=== PATIENT | female | born 1980 | race African-American/Black ===

== ENCOUNTER 2017-10-03 13:22 | Inpatient (IN) | payer OTHER ==
[~2017-10-03] VITALS: Ht 170.2 cm; Wt 100.0 kg
[2017-10-03] MEDS ORDERED: NICOTINE1 EAC1 TD (21:13)
== END 2017-10-05 13:30 | disposition home or self-care (01) | DRG 775 ==
LOC: FBC 13:22
PROVIDERS: ADMIT Obstetrics & Gynecology
PROC: 10907ZC Drainage of Amniotic Fluid, Therapeutic from Products of Conception, Via Natural or Artificial Opening (ICD-10-PCS; 2017-10-03)
PROC: 00HU33Z Insertion of Infusion Device into Spinal Canal, Percutaneous Approach (ICD-10-PCS; 2017-10-03)
PROC: 3E0R3BZ Introduction of Anesthetic Agent into Spinal Canal, Percutaneous Approach (ICD-10-PCS; 2017-10-03)
PROC: 10E0XZZ Delivery of Products of Conception, External Approach (ICD-10-PCS; principal; 2017-10-04)
DX: O66.0 Obstructed labor due to shoulder dystocia (principal); O99.324 Drug use complicating childbirth; O71.7 Obstetric hematoma of pelvis; F15.11 Other stimulant abuse, in remission; O99.344 Other mental disorders complicating childbirth; F20.9 Schizophrenia, unspecified; F14.11 Cocaine abuse, in remission; F12.11 Cannabis abuse, in remission; O69.81X0 Labor and delivery complicated by cord around neck, without compression, not applicable or unspecified; Z86.19 Personal history of other infectious and parasitic diseases; Z88.5 Allergy status to narcotic agent; Z91.041 Radiographic dye allergy status; Z87.891 Personal history of nicotine dependence; Z91.410 Personal history of adult physical and sexual abuse; Z3A.40 40 weeks gestation of pregnancy; Z37.0 Single live birth
CPT/HCPCS: 01960; 82803; 85027; J2590; J7120

== ENCOUNTER 2017-10-15 06:43 | Emergency (ER) | payer OTHER ==
[~2017-10-15] VITALS: Ht 170.2 cm; Wt 90.7 kg
[~2017-10-15 06:43] MED LIST: NICOTINE1 EAC1 TD
--- NOTE | 2017-10-15 07:13 | EKG ---
[facility] [address] [facility] [place] [address] Signed Supraventricular tachycardia Rightward axis Incomplete right bundle branch block Septal infarct (cited on or before 15-OCT-2017) Abnormal ECG When compared with ECG of 15-OCT-2017 06:48, (Unconfirmed) ST now depressed in Lateral leads Nonspecific T wave abnormality, improved in Inferior leads Nonspecific T wave abnormality no longer evident in Lateral leads Confirmed by FERMIN BRANDON MD ([id number]) on 10/15/2017 7:13:20 AM Electronically Signed By: FERMIN BRANDON MD 10/15/17 0713 PATIENT NAME: NATHANAEL MOLINA Electrocardiogram DATE OF : 78 PHYSICIAN: FERMIN BRANDON MD REPORT #: [id number] REPORT IS CONFIDENTIAL AND NOT TO BE RELEASED WITHOUT AUTHORIZATION
--- NOTE | 2017-10-16 16:04 | EKG ---
[facility] [address] [facility] [place] [address] Signed Normal sinus rhythm Possible Left atrial enlargement Incomplete right bundle branch block Borderline ECG When compared with ECG of 15-OCT-2017 06:49, Vent. rate has decreased BY 114 BPM QRS axis shifted left Criteria for Septal infarct are no longer present ST no longer depressed in Inferior leads ST elevation has replaced ST depression in Anterolateral leads Confirmed by JORGE JOEL DO ([id number]) on 10/16/2017 4:03:55 PM Electronically Signed By: JORGE JOEL DO 10/16/17 1604 PATIENT NAME: NATHANAEL MOLINA Electrocardiogram DATE OF : [birth year] PHYSICIAN: JORGE JOEL DO REPORT #: [id number] REPORT IS CONFIDENTIAL AND NOT TO BE RELEASED WITHOUT AUTHORIZATION
== END 2017-10-15 08:47 | disposition home or self-care (01) ==
LOC: ED 06:43
DX: I47.1 Supraventricular tachycardia (principal); Z87.891 Personal history of nicotine dependence; Z88.5 Allergy status to narcotic agent; Z88.8 Allergy status to other drugs, medicaments and biological substances; Z79.899 Other long term (current) drug therapy
CPT/HCPCS: 71045; 80053; 84484; 85025; 93005; 93010; 99285

== ENCOUNTER 2019-03-13 13:27 | Emergency (ER) | payer OTHER ==
[~2019-03-13] VITALS: Ht 170.2 cm; Wt 90.7 kg
== END 2019-03-13 15:00 | disposition home or self-care (01) ==
LOC: ED 13:27
DX: R25.8 Other abnormal involuntary movements (principal); Z87.891 Personal history of nicotine dependence; Z88.5 Allergy status to narcotic agent; Z88.8 Allergy status to other drugs, medicaments and biological substances
CPT/HCPCS: 99283; Q0163

== ENCOUNTER 2022-02-10 05:40 | Day surgery (SDC) | payer OTHER ==
[~2022-02-10] VITALS: Ht 170.2 cm; Wt 100.0 kg
[~2022-02-10 05:40] MED LIST changes: +FISH OIL + D31 EACH PO; +MULTI VITAMIN1 EACH PO; +RISPERDAL1 MG PO; +UNISOM50 MG PO
--- NOTE | 2022-02-10 06:49 | NUR ---
0645-PATIENT UP TO RESTROOM.
--- NOTE | 2022-02-10 10:36 | NUR ---
02/10/22 1036 Eliza Guerrero 1023- PT ARRIVES TO PACU REACTIVE TO STIMULI. PT DOES NOT ANSWER QUESTIONS OR FOLLOW COMMANDS AT THIS TIME. PT FALLS INSTANTLY BACK TO SLEEP. RESP EVEN AND UNLABORED. OXYGEN SAT HIGH 90'S TO 100% ON RA. 1028- PT ENCOURAGED TO COUGH AND DEEP BREATHE OXYGEN SAT IS 90% ON RA. PT IS ABLE TO DO THIS AND OXYGEN SAT INCREASED TO THE HIGH 90'S ON RA. 1029- DR. SANTNAA AT THE BEDSIDE TO TALK WITH THE PT.
--- NOTE | 2022-02-10 11:10 | NUR ---
PT TRANSPORTED BACK TO DAY SURGERY VIA STRETCHER. PT RESTING IN BED, ASLEEP, RESPONSIVE TO STIMULI. REPORT TAKEN BY DARSHANA BAIN. PT REPORTS NO PAIN OR NAUSEA. JI PAWS WARMER IN USE DUE TO PT REPORTING FEELING COLD. ICE WATER AT BEDSIDE. CALL LIGHT WITHIN REACH. PT SLEEPING AND HAS NO FURTHER REQUESTS AT THIS TIME.
--- NOTE | 2022-02-10 11:13 | NUR ---
PT ALERT, ORIENTED AND EXPRESSED GREAT CONFIDENCE IN DR SANTANA AND HIS CARE. ALL QUESTIONS ASKED ANSWERED, PT WILL HAVE A FRIEND HERE AT [place] FOR RIDE HOME.GAVE ENCOURAGEMENT AND HAD PRAYER WITH PT AT HER REQUEST. WILL FOLLOW
--- NOTE | 2022-02-10 11:44 | NUR ---
PT'S FRIEND NOMI CALLED TO INFORM PT IS DONE WITH SURGERY, PER PT REQUEST. NOMI STATES THEY WILL BE HERE AT 5PM.
--- NOTE | 2022-02-10 12:18 | NUR ---
PT REPORTING NAUSEA UPON RN ARRIVAL TO ROOM. PT GIVEN EMESIS BAG. PT VOMITTED 100 MLS RED LIQUID AFTER EATING RED JELLO-O. PT'S FACE AND HANDS CLEANED WITH WET TOWEL. PT GIVEN 12.5 MG PROMETHAZINE IV DILUTED IN 10 MLS SALINE PUSHED OVER 3 MIN. PT GIVEN WARM CLEAN BLANKETS. PT REPORTS NO LONGER FEELING NAUSEOUS. PT REPORTS FEELING MORE TIRED AND DIZZY AFTER RECEIVING IV PROMETHAZINE. PT RESTING IN BED WITH ICE WATER AT BEDSIDE AND CALL LIGHT WITHIN REACH.
--- NOTE | 2022-02-10 12:59 | NUR ---
PT SLEEPING IN BED WITH JI PAWS WARMER ON. PT REPORTS NO PAIN OR NAUSEA. PT REPORTS FEELING VERY TIRED. ICE WATER AT BEDSIDE. CALL LIGHT WITHIN REACH.
--- NOTE | 2022-02-10 14:02 | NUR ---
PT SLEEPING IN BED ON RIGHT SIDE. REPORTS NO NAUSEA OR PAIN. INFORMED PT DR SANTANA WOULD BE CALLED ONCE SHE FEELS MORE AWAKE AND CAN GET UP TO GO TO THE BATHROOM. ICE WATER AT BEDSIDE. CALL LIGHT WITHIN REACH. PT HAD NO FURTHER NEEDS AT THIS TIME.
--- NOTE | 2022-02-10 14:31 | NUR ---
PT SITTING UP IN BED EATING PUDDING AND DRINKING COFFEE. ICE WATER AT BEDSIDE. PT INFORMED TO PRESS CALL LIGHT IF NAUSEOUS. CALL LIGHT WITHIN REACH. PT HAS NO FURTHER NEEDS AT THIS TIME.
--- NOTE | 2022-02-10 14:42 | NUR ---
PT TOLERATING PUDDING WELL. REPORTS NO NAUSEA. DR. SANTANA CALLED AND REPORT ON PT GIVEN. DR SANTANA STATES HE WILL COME SEE PT AND HOPES TO D/C PT WITHIN THE NEXT HOUR.
--- NOTE | 2022-02-10 15:03 | NUR ---
DR SANTANA IN PT ROOM. D/C MERIDA CATH AND PACKING IN VAGINA. PT TOLERATED WELL. DR SANTANA STATES PT WILL D/C FROM DAY SURGERY SOON SHE IS ABLE TO GET UP AND USE THE BATHROOM. PT VERBALIZED UNDERSTANDING. ICE WATER REPLACED AT BEDSIDE. CALL LIGHT WITHIN REACH.
--- NOTE | 2022-02-10 15:54 | NUR ---
PT REQUESTING TO BE CHANGED DUE TO A SMALL AMOUNT OF RED DRAINAGE COMING FROM THE VAGINA. PT GIVEN BABY WIPES, DEPENDS AND FRESH BLANKETS. ICE WATER REPLENISHED AT BEDSIDE. PT CHANGED INTO PERSONAL CLOTHES. CALL LIGHT WITHIN REACH. PT HAS NO FURTHER NEEDS AT THIS TIME.
--- NOTE | 2022-02-10 16:06 | NUR ---
PT RESTING IN BED. REPORTS PAIN 4/10 AND REQUESTING PAIN MEDS. REPORTS NO NAUSEA. ICE WATER AT BEDSIDE. CALL LIGHT WITHIN REACH.
--- NOTE | 2022-02-10 16:19 | NUR ---
PT REQUESTING TO TAKE 0.5 OF PERCOCET TABLET. EDIT MADE IN EMAR FROM 1 TABLET TO 0.5 TABLET PER PHARMACY. 0.5 TABLET WASTED WITH EMELIA FROM PHARMACY.
--- NOTE | 2022-02-10 16:48 | NUR ---
PT UP TO BATHROOM. NO URINE. PT REPORTING PAIN IN VAGINA. PT DENIES WANTING MOTRIN DUE TO STOMACH PROBLEMS AND REFUSES PERCOCET DUE TO "BEING SENSITIVE TO OPIOIDS". BLADDER SCAN DONE. 24 MLS IN BLADDER. PT AMBULATED BACK TO BED WITH MINIMAL ASSISTANCE. DR SANTANA CALLED AND GIVEN REPORT ON PT. DR SANTANA STATES TO PUSH ORAL FLUIDS AND ORDER 1,000 MG PO TYLENOL ONCE.
--- NOTE | 2022-02-10 17:00 | NUR ---
8876-PHONE CALL TO DR. SANTANA AND EXPLAINED PATIENT JUSTED VOMITED 800ML. VO FOR 500ML BOLUS, 12.5 PHENERGAN, AND 4MG ZOFRAN. ORDERS TO SEND PATIENT TO THE FLOOR.
--- NOTE | 2022-02-10 17:11 | NUR ---
0445: PT PRESSED CALL LIGHT. PT WAS VOMITTING UPON ARRIVAL TO ROOM. PT VOMITTED [address] SANTANA CALL[address]. [address] SANTANA ORDERED IV PHENERGAN, ZOFRAN, IV LR FLUIDS, AND IV TYLENOL. ZOFRAN AND PHENERGAN GIVEN. IV FLUIDS RUNNING. 0515: PT UP IN BED REPORTING NAUSEA HOLDING EMESIS BAG. BP 122/59 (72)
--- NOTE | 2022-02-10 17:49 | NUR ---
1730: PT TRANSPORTED TO MED SURG ROOM 108 WITH BELONGINGS AND SIGNIFICANT OTHER. REPORT GIVEN TO MARIA L GILLILAND. PT REPORTS 3/10 PAIN. PT BELONGINGS, CHART, AND ICE WATER CUP LEFT IN MED SURG ROOM WITH PT.
--- NOTE | 2022-02-10 18:19 | NUR ---
PT TO RM 108 VIA STRETCHER, REPORT RECEIVED FROM OR NURSE, ALL QUESTIONS ANSWERED. PT RATES PAIN 3/10, PT STATES THAT IS TOLERABLE AT THIS TIME. PT UP TO RESTROOM, UNABLE TO URINATE. SMALL AMOUNT OF BLOODY DRAINAGE TO BRIEF, BRIEF CHANGED. PT BACK TO BED. BLADDER SCAN 97MLS. PT HAD SMALL AMOUNT OF EMESIS, STATES NAUSEA IMPROVED AFTER. LAP SITES INTACT WITH NO DRAINAGE. PT DENIES FURTHER NEEDS AT THIS TIME. OREINTED TO CALL LIGHT, WITHIN REACH.
--- NOTE | 2022-02-10 19:01 | NUR ---
PT STATES SHE THINKS SHE MAY HAVE VOIDED WHEN SHE WAS PREVIOUSLY VOMITTING PRIOR TO ARRIVAL TO FLOOR. STATES HER BRIEF AND CHUX PAD WERE CHANGED AND WET.
--- NOTE | 2022-02-10 19:26 | NUR ---
REPORT RECEIVED FROM DARSHANA LISA. pt COMPLAINS OF NAUSEA, RATES PAIN 3/10. SBA TO RESTROOM. pt VERBALIZES UNDERSTANDING TO USE CALL LIGHT. pt CALLS AFTER A FEW MINUTES. UNABLE TO VOID. IVF INFUSING WNL.
--- NOTE | 2022-02-10 19:59 | NUR ---
pt SITTING UP IN BED, 100 ML EMESIS IN BAG. PRN NAUSEA AND IV PAIN MEDICATION ADMINISTERED. ASSESSMENT COMPLETE. LAP SITES X 3 DRY AND INTACT, SMALL AMT SS DRAINAGE ON BANDAIDS. IS USE DEMONSTRATED X 4, 2250 ML BEST EFFORT. INCONTINENCE NOTED IN ATTENDS, SMALL AMT SS DRAINAGE ON PAD. SBA TO RESTROOM FOR VOID, NO ADDITIONAL VOID IN TOILET. MOUTHWASH PROVIDED. BACK IN BED, CALL LIGHT IN REACH. IVF INFUSING WNL.
--- NOTE | 2022-02-10 22:53 | NUR ---
CHECKED ON pt. AWAKE RESTING IN BED. SIGNIFICANT OTHER IN ROOM. SBA TO RESTROOM FOR VOID, 800 MLS CONCENTRATED URINE. NEW SANJANA PAD PROVIDED, SCANT AMT OF BLOOD ON PREVIOUS PAD. pt BACK IN BED, PO FLUIDS AND SNACK PROVIDED. pt AWAKE, ALERT, SITTING UP IN BED. DENIES ANY NAUSEA. DENIES PAIN. SCHEDULED PO MEDICATIONS ADMINISTERED AT THIS TIME. CALL LIGHT IN REACH.
--- NOTE | 2022-02-10 23:31 | NUR ---
CALL LIGHT ANSWERED pt PULLED OWN IV SITE ON ACCIDENT. BLEEDING STOPPED, GAUZE AND COBAN APPLIED. NEW IV STARTED LEFT AC. SL WNL. pt DENIES NAUSEA. DENIES PAIN. LIGHTS OFF IN ROOM. CALL LIGHT IN REACH.
--- NOTE | 2022-02-11 02:20 | NUR ---
pt SLEEPING. AWAKENS TO VOICE. VSS. pt DENIES ANY PAIN, DENIES NAUSEA. pt FINISHED SANDWICH BOX. SBA TO RESTROOM FOR VOID, BACK IN BED. ASSESSMENT COMPLETE. SCANT AMT SANGUINOUS FLUID ON SANJANA PAD. DRESSINGS UNCHANGED, BANDAIDS INTACT X 3 ON LAP SITES. LIGHTS OFF IN ROOM. CALL LIGHT IN REACH.
--- NOTE | 2022-02-11 05:12 | NUR ---
PT IN BED. VITALS AND IS AND OS COMPLETE. PT UP TO BATHROOM INDEP TO VOID. PT PROVIDED ORANGE JUICE AND ICE WATER. PT DECLINED WARM BLANKET. PT BACK IN BED TO REST. NO FURTHER NEEDS. CALL LIGHT WITHIN REACH
--- NOTE | 2022-02-11 06:18 | OR ---
[facility] [address] [place] [id number] Signed DATE OF OPERATION: 02/10/2022 SURGEON: Susan Horner DO PREOPERATIVE DIAGNOSES: 1. Pelvic organ (apical) prolapse. 2. Rectocele. 3. Stress urinary incontinence. POSTOPERATIVE DIAGNOSES: 1. Pelvic organ (apical) prolapse. 2. Rectocele. 3. Stress urinary incontinence. PROCEDURES PERFORMED: 1. Total laparoscopic hysterectomy. 2. Bilateral salpingectomy. 3. Cystoscopy. 4. Posterior repair with perineorrhaphy. DIRECTOR SERVICE: Vernell Caballero DO ANESTHESIA: General. ESTIMATED BLOOD LOSS: 150 mL. SPECIMENS: 1. Uterus and cervix. 2. Bilateral fallopian tubes. DRAINS: Perez to gravity. IMPLANTS: None. PACKING: Electronically Signed By: SUSAN HORNER DO (JD) 02/11/22 0618 PATIENT NAME: NATHANAEL BAIN OPERATIVE REPORT DATE OF : 78 REPORT #: [id number] PHYSICIAN: SUSAN HORNER DO (JD) PCP: GABRIELA PARIS MD REPORT IS CONFIDENTIAL AND NOT TO BE RELEASED WITHOUT AUTHORIZATION [facility] [address] [place] [id number] Signed Premarin impregnated Kerlix. FINDINGS: Normal external genitalia with normal clitoris, urethra, meatus bilateral Refugio's, and Bartholin glands. Apical prolapse with cervix approximately 1 cm above the introitus. Normal-appearing cervix. On laparoscopy, normal right and left upper quadrants. Small uterus with normal tubes and ovaries bilaterally. Atrophic appearing uterosacral ligaments bilaterally. Hemostasis at the end of hysterectomy with good apical support. On cystoscopy, normal bladder with bilateral ureteral jets. Symptomatic rectocele approximately 2 cm beyond the introitus and was repaired with excellent posterior compartment integrity following posterior repair and perineorrhaphy. Hemostasis at the end of procedure. COMPLICATIONS: None. INDICATIONS: Ms. Bain is a very pleasant 41-year-old -[place] female, who presents with symptomatic pelvic organ prolapse and rectocele. She also has stress urinary incontinence. The patient was consented for total laparoscopic hysterectomy, bilateral salpingectomy, cystoscopy, posterior repair and midurethral sling. Unfortunately, when the patient presented to the hospital this morning, midurethral sling was unavailable. We reviewed options including canceling case and rescheduling once TVT Exact was back in stock. The patient desires to proceed with hysterectomy and posterior repair. Risks, benefits, and alternatives were discussed in detail with the patient. The patient understands and wished to proceed with the procedure. TECHNIQUE: The patient was taken to the operating room where time-out was performed to confirm correct patient and correct procedure. General anesthesia was adequately established. The patient was prepped and draped in the dorsal lithotomy position with her feet in [facility] stirrups. ICPs were on and running. The patient received Ancef 2 g preoperatively as well as heparin 5000 units. A Perez catheter was inserted and the anterior lip of the cervix was grasped with an Allis clamp. The cervix was gently dilated using Hegar dilators and a VCare uterine manipulator was placed without difficulty. The surgeon's gloves were changed and attention was turned to the abdomen. Approximately 2 cm below the umbilicus was infiltrated with 0.25% Marcaine with epinephrine and 3 to 4 cm curvilinear incision was made. The fascia was grasped with hemostats, elevated and entered sharply with Metzenbaum scissors. Stay sutures of 0 Vicryl were placed in the superior and inferior edges of the fascial incision, elevated, and the peritoneum was entered bluntly. A Edward operative port was then placed without difficulty and pneumoperitoneum was established. Survey of the abdomen and pelvis was Electronically Signed By: SUSAN PAGAN) DO ESTHER 02/11/22 0618 PATIENT NAME: NATHANAEL BAIN OPERATIVE REPORT DATE OF : 78 REPORT #: [id number] PHYSICIAN: SUSAN HORNER (NA) DO PCP: GABRIELA PARIS MD REPORT IS CONFIDENTIAL AND NOT TO BE RELEASED WITHOUT AUTHORIZATION [facility] [address] [place], [place] [address] Signed performed demonstrating normal right and left upper quadrants and normal pelvis with atrophic uterosacral ligaments bilaterally. A 5 mm assist port was placed in the left lower quadrant under direct visualization without complication. 8 mm expanding port was placed in the right lower quadrant under direct visualization without complication. The left fallopian tube was grasped with graspers, elevated, and dissected along the mesosalpinx using LigaSure device. The left tube was amputated at the cornu and delivered and sent to pathology for further evaluation. The left uteroovarian ligament was fulgurated and divided with excellent hemostasis. The left round ligament was fulgurated and divided again with excellent hemostasis and the leaves of the broad ligament were dissected. The anterior leaf was dissected from the mid portion of the round ligament to the anterior edge of the vaginal cup and across the superior portion of this cup without difficulty. The bladder was bluntly dissected well below the vaginal cup. The posterior leaf of the broad ligament was dissected from the midportion of the round ligament to the uterosacral ligament and across the posterior edge of the vaginal cup without complication. The uterine vessels were identified, fulgurated and divided with excellent hemostasis. The process was repeated on the right without complication including division of the fallopian tube across the mesosalpinx, fulguration and division of the utero-ovarian ligament, round ligaments, and division of the leaves of the broad ligament. The right uterine vessels were identified, fulgurated and divided with excellent hemostasis. The colpotomy was then performed using Sonicision device and the uterus and cervix were delivered through the vagina and sent to pathology for further evaluation. Pneumoperitoneum was reestablished by placing a wet lap in a surgical glove and stuffing this in the vagina. The pelvis was irrigated, found to be hemostatic. Colpotomy was then repaired using 0 Stratafix suture in a running nonlocked manner along the vaginal cuff with careful attention to incorporate the admittedly a trophic uterosacral ligaments bilaterally and incorporating the vaginal epithelium with each bite. Excellent hemostasis. An apical support was appreciated at this point. The pelvis was again irrigated and found to be hemostatic. Pneumoperitoneum was reduced. Trocars were removed. Infraumbilical fascia was repaired using 0 Vicryl in a running nonlocked manner and reinforced by ligating the stay sutures. The subcu at the infraumbilical incision was reapproximated using 2-0 Vicryl in a running nonlocked manner. Skin was reapproximated using 4-0 Monocryl and a running subcuticular stitch with excellent hemostasis and cosmesis at each of the trocar sites. Attention was then turned to cystoscopy. The Perez was removed and a 70-degree cystoscope was placed in the urethral meatus and advanced under direct visualization into the bladder. Normal bladder with bladder dome was appreciated. Bilateral ureteral jets were nearly immediately identified. The bladder was drained. Perez catheter was reinserted and attention was then turned to perineorrhaphy and posterior repair. The posterior edge of the hymen was grasped with Allis clamps and perineorrhaphy was incised using a surgical scalpel and superficial skin was divided. The posterior edges of the Electronically Signed By: SUSAN PAGAN) DO ESTHER 02/11/22 0618 PATIENT NAME: NATHANAEL BAIN OPERATIVE REPORT DATE OF : 78 REPORT #: [id number] PHYSICIAN: SUSAN HORNER) PCP: GABRIELA PARIS MD REPORT IS CONFIDENTIAL AND NOT TO BE RELEASED WITHOUT AUTHORIZATION [facility] [address] [place], [place] [address] Signed vaginal epithelium were elevated and bluntly dissected using Metzenbaum scissors. It was then incised using Metzenbaum scissors in the midline of the vagina to the apex of the rectocele, grasping the edges with Allis clamps as the dissection continued superior. Once the apex was breached, the vaginal epithelium was divided from the rectum using blunt and sharp dissection with Metzenbaum scissors. The endopelvic fascia was then identified bilaterally and plicated in the midline using 0 Vicryl in interrupted sutures repairing the rectocele. Excellent hemostasis was appreciated and FloSeal was then applied. The edges of the vagina were trimmed and the vaginal incision was then reapproximated using 2-0 Vicryl in a running locked manner to the hymenal ring. Additional FloSeal was applied under the vaginal epithelium again with excellent hemostasis appreciated. Perineum was reapproximated using 2-0 Vicryl in the standard fashion. The perineorrhaphy was repaired again with 2-0 Vicryl with excellent perineal support appreciated. Rectal exam was performed that demonstrated excellent posterior compartment integrity and no suture material in the rectum. The vagina was then packed using Premarin impregnated Kerlix and the patient was taken to PACU in good and stable condition. Sponge, needle, and instrument count was correct x2 at the end of the procedure. Dr. Caballero, was present and participated in all portions of the procedure. DO EVERETT Le/TOMYL /[id number] Copies: ~ Electronically Signed By: SUSAN HORNER DO (JD) 02/11/22 0618 PATIENT NAME: NATHANAEL BAIN OPERATIVE REPORT DATE OF : [birth year] REPORT #: [id number] PHYSICIAN: SUSAN HORNER DO (JD) PCP: GABRIELA PARIS MD REPORT IS CONFIDENTIAL AND NOT TO BE RELEASED WITHOUT AUTHORIZATION
--- NOTE | 2022-02-11 06:35 | NUR ---
pt AWAKE RESTING IN BED. RATES PAIN 3/10 AT INCISIONS. PRN TORADOL ADMINISTERED. SBA TO RESTROOM FOR VOID, MISSED VOID. BACK IN BED. CALL LIGHT IN REACH.
--- NOTE | 2022-02-11 07:54 | NUR ---
REPORT RECEIVED FROM IRAIDA GILLILAND, ALL QUESTIONS ANSWERED.
--- NOTE | 2022-02-11 08:06 | NUR ---
Pt in bed this am. INDP in room. 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
--- NOTE | 2022-02-11 16:38 | PATH ---
[facility] [address] [place], [place] [address] Signed SPECIMEN(S): A UTERUS, CERVIX AND FALLOPIAN TUBES SPECIMEN SOURCE: A. UTERUS, CERVIX AND FALLOPIAN TUBES CLINICAL HISTORY: Incomplete uterovaginal prolapse, rectocele, JOCELYNN. FINAL PATHOLOGIC DIAGNOSIS: Uterus, cervix, bilateral fallopian tubes, hysterectomy with bilateral salpingectomy: - Ectocervical epithelium within normal limits. - Endocervical epithelium with focal squamous metaplasia. - Chronic cervicitis. - Uterus with weakly proliferative endometrium. - Fallopian tubes within normal limits. TWK:[facility]:C2NR MICROSCOPIC EXAMINATION: Histologic sections of all submitted blocks are examined by light microscopy. These findings, together with the gross examination, support the pathologic diagnosis. GROSS DESCRIPTION: The specimen, labeled and designated "Odell, uterus, cervix, bilateral fallopian tubes," is received in formalin and consists of a uterus (69 g, 5.7 cm superior to inferior, 5.7 cm cornu to cornu, 3.6 cm anterior to posterior), attached cervix (2.5 cm in length x 3.0 cm in diameter) with pink-reno, smooth cervical mucosa and patent, slit-shaped os (0.8 x 0.3 cm), and two detached and undesignated fimbriated fallopian tube segments (5.8 cm in length and ranging in diameter from 0.7 to 0.9 cm, and 5.2 cm in length and ranging in diameter from 0.6 to 0.9 cm). One fallopian tube segment is arbitrarily inked blue. Both fallopian tube segments are brown-reno and are sectioned to reveal a grossly unremarkable cut surface. The fimbriae are entirely submitted. The uterine serosa is pink-reno and smooth. The cervix is sectioned to reveal a pink-reno to hemorrhagic endocervix (endocervical canal: 2.0 x 1.1 cm). Sectioning of the uterus reveals an endometrial cavity (4.5 cm superior to inferior x 2.5 cm cornu to cornu) with hemorrhagic PATIENT NAME: NATHANAEL MOLINA PATHOLOGY DATE OF : 78 REPORT #: [id number] PHYSICIAN: YOKO QUINTANILLA PCP: GABRIELA PARIS MD REPORT IS CONFIDENTIAL AND NOT TO BE RELEASED WITHOUT AUTHORIZATION [facility] [address] [place], [place] [address] Signed endometrial lining that measures up to 0.1 cm in thickness. The myometrium is pink-reno and trabeculated with no masses or lesions grossly identified. Carton Making Machinist sections are submitted. Cassette Summary: (A1-A2) Fallopian tubes (A3) Cervix (A4) Endomyometrium AC (under the direct supervision of a pathologist) The Gross Description was prepared using a voice recognition system. The report was reviewed for accuracy; however, sound-alike word errors, addition and/or deletions may occur. If there is any question about this report, please contact Client Services. PERFORMING LABORATORY: The technical component was performed by [facility], [address] [place] [id number] (CLIA# [id number]). The professional interpretation was performed by [facility], [facility], [address] [place] [address] (CLIA#: [id number]). Diagnostician: Edgardo Maki MD Pathologist Electronically Signed 02/11/2022 Copies: ~ PATIENT NAME: NATHANAEL MOLINA PATHOLOGY DATE OF : 78 REPORT #: [id number] PHYSICIAN: YOKO QUINTANILLA PCP: GABRIELA PARIS MD REPORT IS CONFIDENTIAL AND NOT TO BE RELEASED WITHOUT AUTHORIZATION
== END 2022-02-11 08:41 | disposition home or self-care (01) ==
LOC: DS 05:40 → MS 17:52 → DS 02-11 08:41
PROVIDERS: ATTEND Obstetrics & Gynecology
PROC: 0JQC0ZZ Repair Pelvic Region Subcutaneous Tissue and Fascia, Open Approach (ICD-10-PCS; 2022-02-10)
PROC: 0WQ Anatomical Regions, General, Repair (ICD-10-PCS; 2022-02-10)
PROC: 0UT94ZZ Resection of Uterus, Percutaneous Endoscopic Approach (ICD-10-PCS; principal; 2022-02-10 07:30)
PROC: 0UT74ZZ Resection of Bilateral Fallopian Tubes, Percutaneous Endoscopic Approach (ICD-10-PCS; 2022-02-10 07:30)
DX: N72 Inflammatory disease of cervix uteri (principal); N81.6 Rectocele; N81.89 Other female genital prolapse; N39.3 Stress incontinence (female) (male); Z87.891 Personal history of nicotine dependence; Z88.5 Allergy status to narcotic agent; Z91.041 Radiographic dye allergy status
CPT/HCPCS: A9270; J0131; J0690; J1100; J1170; J1644; J1885; J2001; J2250; J2405; J2550; J2704; J2765; J3010; J7121

== ENCOUNTER 2022-10-18 07:07 | Emergency (ER) | payer OTHER ==
[~2022-10-18] VITALS: Ht 170.2 cm; Wt 72.6 kg
--- OUTSIDE RECORDS SUMMARY | ~2022-10-18 | XMS | Continuity of Care Document ---
Demographics + + + | Address | [address] [address] | | | [place] [address] | + + + | Preferred Language | Unknown | + + + | Marital Status | | + + + | Worship Affiliation | Unknown | + + + | Race | Unknown | + + + | Ethnic Group | Unknown | + + + Author + + + | Author | [facility] | + + + | Organization | [facility] | + + + | Address | [address] | | | [place] [address] | + + + | Phone | | + + + Care Team Providers + + + + | Care Management Professional Name | Role | Phone | + + + + Unavailable | Unavailable | + + + + Allergies No information. Encounters No information. Functional Status No information. Immunizations No information. Medications No information. Problems + + + + | date | description | facility | + + + + | 2022-07-19 12:26 | OTHER SPECIFIED DISORDERS | [facility] | | | OF BREAST | | + + + + | 2022-07-19 12:26 | OTH ABN AND INCONCLUSIVE | [facility] | | | FINDINGS ON DX | | + + + + Procedures No information. Results/Labs No information. Social History No information. Vital Signs No information."
--- OUTSIDE RECORDS SUMMARY | ~2022-10-18 | XMS | Continuity of Care Document ---
Demographics + + + | Address | [address] [address] | | | [place] [address] | + + + | Preferred Language | Unknown | + + + | Marital Status | | + + + | Buddhist Affiliation | Unknown | + + + | Race | Unknown | + + + | Ethnic Group | Unknown | + + + Author + + + | Author | [facility] | + + + | Organization | [facility] | + + + | Address | [address] | | | [place] [address] | + + + | Phone | | + + + Care Team Providers + + + + | Care Head Of Quality Name | Role | Phone | + [...]
[2022-10-18 07:37] LABS: BASOPHILS 0.7 % (0-2); EOSINOPHILS 0.1 % (0-6); HEMATOCRIT 36.5 % (35.0-50.0); HEMOGLOBIN 11.6 g/dL (12.0-18.0); LYMPHOCYTES 7.9 % (24-44); MCH 24.5 (27-36); MCHC 31.9 g/dl (30-36); MCV 76.7 fl (81-99); MONOCYTES 5.1 % (0-12); NEUTROPHILS 86.2 % (39-80); PLATELET COUNT 352 K/uL (140-440); RBC 4.76 M/ul (4.3-5.7); RDW 15.8 (10.5-15.0)
[2022-10-18 08:12] LABS: ACETAMINOPHEN 0 ug/mL (10-30); ALBUMIN 4.3 g/dL (3.4-5.0); ALBUMIN/GLOBULIN RATIO 1.16 (1.1-2.4); ALCOHOL, MEDICAL <3 ng/dL (<3); ALKALINE PHOSPHATASE 73 U/L (46-116); ALT (SGPT) 19 U/L (14-59); ANION GAP 19.9 (7-21); AST (SGOT) 24 U/L (15-37); BILIRUBIN, TOTAL 0.9 ng/dL (0.2-1.0); BUN/CREATININE RATIO 13.33 (6.0-28.6); CALCIUM 9.7 mg/dL (8.5-10.1); CARBON DIOXIDE 20 mmol/L (21-32); CHLORIDE 102 mmol/L (98-107); GLOMERULAR FILTRATION RATE,EST 82 mL/min (>60); POTASSIUM 2.9 mmol/L (3.5-5.1); SALICYLATE 0.3 mg/dL (2.8-20.0); TSH, 3RD GENERATION 1.725 uIU/mL (0.358-3.740); UREA NITROGEN 12 mg/dL (7-18)
[2022-10-18 08:36] LABS: INFLUENZA B NAA NEGATIVE (NEGATIVE); RESPIRATORY SYNCYTIAL VIR NAA NEGATIVE (NEGATIVE)
[2022-10-18 10:08] LABS: BILIRUBIN, URINE POSITIVE (negative); BLOOD/HGB, URINE NEGATIVE (Negative); KETONE, URINE >=80 (Negative); LEUK ESTERASE, URINE NEGATIVE (negative); NITRITE, URINE NEGATIVE (negative)
[2022-10-18 10:16] LABS: AMPHETAMINES, UR NEGATIVE (NEGATIVE); BARBITURATES, UR NEGATIVE (NEGATIVE); BENZODIAZEPINES, UR NEGATIVE (NEGATIVE); BUPRENORPHINE,UR NEGATIVE (NEGATIVE); COCAINE, UR NEGATIVE (NEGATIVE); MARIJUANA (THC), UR POSITIVE (NEGATIVE); MDMA, UR NEGATIVE (NEGATIVE); METHADONE, UR NEGATIVE (NEGATIVE); METHAMPHETAMINE, UR NEGATIVE (NEGATIVE); OPIATES, UR NEGATIVE (NEGATIVE); OXYCODONE, UR NEGATIVE (NEGATIVE); PHENCYCLIDINE, UR NEGATIVE (NEGATIVE); TRICYCLIC ANTIDEPRESSANT, UR NEGATIVE (NEGATIVE)
[2022-10-18 10:18] LABS: RED BLOOD CELLS, URINE 0-1 /hpf (0-5)
[2022-10-18 10:19] LABS: BACTERIA, URINE 1+ /hpf (negative); CASTS, URINE NONE SEEN \\lpf; COLLECTION TYPE, URINE CLEAN CATCH; CRYSTALS, URINE NONE SEEN (0-1+); EPITHELIAL CELLS, URINE SQUAMOUS 2+ /lpf (0-1+); REFLEX CULTURE, URINE No (No)
[2022-10-19] MEDS ORDERED: RISPERIDONE1 MG PO (11:27)
[2022-10-19] MEDS ORDERED: BENADRYL25 MG PO (11:53)
[2022-10-19 12:05] VITALS: BP 110/73
== END 2022-10-19 12:07 | disposition home or self-care (01) ==
LOC: ED 07:07
PROVIDERS: Family Medicine
DX: R44.0 Auditory hallucinations (principal); F17.200 Nicotine dependence, unspecified, uncomplicated; Z88.8 Allergy status to other drugs, medicaments and biological substances; Z79.899 Other long term (current) drug therapy; Z20.822 Contact with and (suspected) exposure to COVID-19
CPT/HCPCS: 36415; 80053; 81001; 84443; 84703; 85025; 87502; A9270; C9803; G0480; J1630; U0002

== ENCOUNTER 2025-01-15 14:47 | Emergency (ER) | payer OTHER ==
[~2025-01-15] VITALS: Ht 170.2 cm; Wt 120.0 kg
[~2025-01-15 14:47] MED LIST changes: +BENADRYL25 MG PO; +RISPERIDONE1 MG PO
[2025-01-15 15:06] LABS: BASOPHILS 0.7 % (0.1-1.2); EOSINOPHILS 2.6 % (0.7-5.8); LYMPHOCYTES 31.1 % (19.3-51.7); MCH 23.7 PG (25.6-32.2); MCHC 31.4 g/dL (32.2-35.5); MCV 75.4 fL (79.4-94.8); MONOCYTES 7.1 % (4.7-12.5); NEUTROPHILS 58.1 % (34.0-71.1); RBC 4.64 M/uL (3.93-5.22)
[2025-01-15 15:42] LABS: ALT (SGPT) 20.0 U/L (14-59); AST (SGOT) 16.0 U/L (15-37); GLOMERULAR FILTRATION RATE,EST 56.0 mL/min (>60); PROTEIN, TOTAL 8.7 g/dL (6.4-8.2); UREA NITROGEN 13.0 mg/dL (7-18)
[2025-01-15] MEDS ORDERED: LIDOCAINE & ANTACID 35 ML BTL PO ONE (16:15)
[2025-01-15 17:02] VITALS: BP 131/83
--- NOTE | 2025-01-17 21:55 | EKG ---
[facility] [address] [place] [address] Signed Sinus bradycardia with sinus arrhythmia Nonspecific T wave abnormality Abnormal ECG When compared with ECG of 15-OCT-2017 07:14, ST no longer elevated in Anterior leads Nonspecific T wave abnormality now evident in Anterolateral leads Confirmed by Rylee Cheney MD () on 01/17/2025 9:54:54 PM Electronically Signed By: RYLEE CHENEY MD 01/17/25 [id number] PATIENT NAME: AMY MOLINA EARNEST Electrocardiogram DATE OF : 78 PHYSICIAN: RYLEE CHENEY MD REPORT #: [id number] REPORT IS CONFIDENTIAL AND NOT TO BE RELEASED WITHOUT AUTHORIZATION
== END 2025-01-15 17:02 | disposition home or self-care (01) ==
LOC: ED 14:47
PROVIDERS: Emergency Medicine
DX: R07.9 Chest pain, unspecified (principal); F17.200 Nicotine dependence, unspecified, uncomplicated; Z79.899 Other long term (current) drug therapy; Z91.041 Radiographic dye allergy status; Z88.5 Allergy status to narcotic agent; Z88.8 Allergy status to other drugs, medicaments and biological substances
CPT/HCPCS: 36415; 71045; 80053; 83735; 84484; 85025; 93005; 93010; 99285-25